=== PATIENT | female | born 1995 | race Two or more races ===

== ENCOUNTER 2023-07-09 08:57 | Emergency (ER) | payer MEDICAID ==
[~2023-07-09] VITALS: Ht 160 cm; Wt 82.3 kg
[2023-07-09 09:17] VITALS: BP 100/76; PULSE 104; RESP 16; TEMP 99.4; O2SAT 98
[2023-07-09] MEDS ORDERED: CEPH500C PO (09:26)
[2023-07-09] MEDS ORDERED: IBUP-1454 PO (09:26)
[2023-07-09] MEDS: cefTRIAXone SOD 1,000 MG VL IM ONE (09:33)
== END 2023-07-09 09:43 | disposition home or self-care (01) ==
LOC: ER 08:57
DX: J03.90 Acute tonsillitis, unspecified (principal)
CPT/HCPCS: 96372; 99283; J0696

== ENCOUNTER 2024-08-26 21:47 | Emergency (ER) | payer MEDICAID ==
[~2024-08-26] VITALS: Ht 160 cm; Wt 79.6 kg
[~2024-08-26 21:47] MED LIST: CEPH500C PO; IBUP-1454 PO
[2024-08-27] MEDS ORDERED: CEPH250C PO (00:11)
[2024-08-27] MEDS ORDERED: HYDR-4902 PO (00:11)
[2024-08-27] MEDS ORDERED: IBUP-1455 PO (00:11)
--- NOTE | 2024-08-27 00:12 | ED.PDOC ---
History of Present Illness(SKN HPI Comments This patient is a pleasant but obese 29-year-old female who arrives the ED today for evaluation of a draining wound to the superior aspect of her buttocks for the past few days. Patient states she has had the wound off and on for several weeks. Patient states the healing Ebbs and flows. Patient denies any fever nausea or vomiting. Vital signs were stable on arrival. Chief Complaint: Abscess Time Seen by MD: 23:33 History of Present Illness: Nurses Notes Allergies: Coded Allergies: NO KNOWN ALLERGIES (Unverified , 07/09/23) Home Meds Active Scripts Ibuprofen (Ibuprofen) 600 Mg Tab, 1 TAB PO QID, #24 TAB Prov:JUNE FAGAN 07/09/23 Cephalexin Monohydrate (Cephalexin) 500 Mg Cap, 1 CAP PO QID, #28 CAP Prov:JUNE FAGAN 07/09/23 Information Source: Patient Mode of Arrival: Ambulatory Severity: Moderate Timing: Weeks Duration: Since onset Prehospital treatment: None Location: Buttock Mechanism: Spontaneous Onset Object: None Condition of Object: None Wound Type: Abscess Tetanus: UTD Associated Signs and Symptoms: Redness, Swelling, Pus Past Medical History PAST MEDICAL HISTORY: Denies Surgical History: Denies all surgeries CONSTRUCTION EQUIPMENT TECHNICIAN History: No Pertinent CONSTRUCTION EQUIPMENT TECHNICIAN History Family History Family History: Reviewed,noncontributory to illness Social History Smoker: Non-Smoker Alcohol: Denies ETOH Use Drugs: Denies Drug Use Lives In: Home Constitutional: denies: chills, diaphoresis, fatigue, fever, malaise, sweats, weakness, others EENTM: denies: blurred vision, double vision, ear bleeding, ear discharge, ear drainage, ear pain, ear ringing, eye pain, eye redness, hearing loss, mouth pain, mouth swelling, nasal discharge, nose bleeding, nose congestion, nose rc n, photophobia, tearing, throat pain, throat swelling, voice changes, others Respiratory: denies: cough, hemoptysis, orthopnea, SOB at rest, shortness of breath, SOB with excertion, stridor, wheezing, others Cardiovascular: denies: chest pain, dizzy spells, diaphoresis, Dyspnea on exertion, edema, irregular heart beat, left arm pain, lightheadedness, palpitations, PND, syncope, others Gastrointestinal: denies: abdomen distended, abdominal pain, blood streaked bowels, constipated, diarrhea, dysphagia, difficulty swallowing, hematemesis, melena, nausea, poor appetite, poor fluid intake, rectal bleeding, rectal pain, vomiting, others Genitourinary: denies: abnormal vagina bleeding, burning, dyspareunia, dysuria, flank pain, frequency, hematuria, incontinence, pain, , vagina discharge, urgency, others Neurological: denies: dizziness, fainting, headache, left sided numbness, left sided weakness, numbness, paresthesia, pre-existing deficit, right sided numbness, right sided weakness, seizure, speech problems, tingling, tremors, weakness, others Musculoskeletal: denies: back pain, gout, joint pain, joint swelling, muscle pain, muscle stiffness, neck pain, others Integumetry: reports: wounds (Abscess to superior buttock); denies: bruises, change in color, change in hair/nails, dryness, laceration, lesions, lumps, rash, others Allergic/Immunocompromised: denies: Difficulty Healing, Frequent Infections, Hives, Itching, others Hematologic/Lymphatic: denies: anemia, blood clots, easy bleeding, easy bruising, swollen glands, others Endocrine: denies: excessive hunger, excessive sweating, excessive thirst, excessive urination, flushing, intolerance to cold, intolerance to heat, unexplained weight gain, unexplained weight loss, others Psychiatric: denies: anxiety, bipolar disorder, depression, hopeless, panic disorder, schizophrenia, sleepless, suicidal, others Physical Exam General Appearance: Mild Distress (Patient has [id number] discomfort from the abscess.), Obese HEENT: Normal ENT Inspection, Pharynx Normal, TMs Normal Neck: Full Range of Motion, Non-Tender, Normal, Normal Inspection Respiratory: Chest Non-Tender, Lungs Clear, No Accessory Muscle Use, No Respiratory Distress, Normal Breath Sounds Cardiovascular: No Edema, No JVD, No Murmur, No Gallop, Normal Peripheral Pulses, Regular Rate/Rhythm Breast Exam: Deferred Gastrointestinal: No Organomegaly, Non Tender, No Pulsatile Mass, Normal Bowel Sounds, Soft Genitalia: Deferred Pelvic: Deferred Rectal: Deferred Extremities: No calf tenderness, Normal capillary refill, Normal inspection, Normal range of motion, Non-tender, No pedal edema Neurologic: Alert, No Motor Deficits, Normal Affect, Normal Mood, No Sensory Deficits Cerebellar Function: Normal Reflexes: Normal Skin: Dry, Normal Color, Warm, Wounds (Patient displays a text book pilonidal cyst to the superior aspect of the gluteal cleft. Mild drainage noted. Localized erythema and edema. Tenderness to palpation throughout.) Lymphatic: No Adenopathy Was a procedure done? Was a procedure done?: No Differential Diagnosis (INTG) Differential Diagnosis: Other (Pilonidal cyst) X-Ray, Labs, Meds, VS Comment This patient has a attempts book pilonidal cyst. Advised the patient that I will send her homeless antibiotics and pain medication, but definitive treatment is to follow up with the primary care provider for a surgical evaluation as this needs to be surgically removed. Time of 1ST Reevaluation: 00:07 Reevaluation 1ST: Improved Consultation: PCP, Surgery Patient Education/Counseling: Diagnosis, Treatment Family Education/Counseling: Diagnosis, Treatment Departure 1 Departure Time of Disposition: 00:08 Impression: Primary Impression: Pilonidal cyst without abscess Disposition: HOME / SELF CARE / HOMELESS Condition: Stable Additional Instructions: Advised patient utilize antibiotics as directed until completion as well as pain medication as needed. Patient can utilize warm soaks as well. Definitive management of this condition is going to require surgical intervention. Patient needs to follow up with the primary care provider for referral for surgeon to satisfy medical concerns. e-Prescriptions Hydrocodone-Acetaminophen (Hydrocodone Bitartrate/AC 5-325 mg) 1 Tab Tab 1 TAB PO Q6HP PRN, #15 TAB Prov: VALE JOSEPH PAC 08/27/24 Ibuprofen Micronized (Ibuprofen) 800 Mg Tab 800 MG PO Q8HP PRN, #20 TAB Prov: VALE JOSEPH PAC 08/27/24 Cephalexin (KEFLEX CAPSULE) 250 Mg Cp 1 CAP PO QID for 7 Days, #28 CAP Prov: VALE JOSEPH PAC 08/27/24 Discharged With: Self, Relative Critical Care Note Critical Care Time?: No Stability Stability form required: No Heart Score Heart Score: Heart Score Response (Comments) Value History N/A 0 EKG N/A 0 Age N/A 0 Risk Factors N/A 0 Troponin N/A 0 Total 0 VALE JOESPH PAC Aug 27, 2024 00:12
[2024-08-27] MEDS: HYDROcodone-ACET 5/325MG TAB PO ONE (04:36)
[2024-08-27 04:41] VITALS: BP 108/65; PULSE 76; RESP 17; TEMP 97.9; O2SAT 98
== END 2024-08-27 04:42 | disposition home or self-care (01) ==
LOC: ER 21:47
DX: L05.91 Pilonidal cyst without abscess (principal); E66.9 Obesity, unspecified